=== PATIENT | female | born 2000 | race Caucasian/White ===

== ENCOUNTER 2023-12-22 12:57 | Inpatient (IN) | payer OTHER ==
[~2023-12-22] VITALS: Ht 157.5 cm; Wt 78.9 kg
[2024-01-05] VITALS (10 sets, daily range): BP systolic 109–137; BP diastolic 56–79
[2024-01-05] MEDS ORDERED: RINGERS SOLUTION,LACTATED 1,000 ML IV SCH (06:15)
[2024-01-05 06:44] LABS: HEMATOCRIT 34.3 % (36.0-45.00); HEMOGLOBIN 11.8 g/dL (12.0-15.00); MEAN CELL VOLUME 90.1 fL (80.00-100.00); MEAN CORPUSCULAR HEMOGLOBIN 31.1 pg (27.00-32.0); MEAN CORPUSCULAR HGB CONC 34.5 g/dl (32.0-36.0); PLATELET COUNT 230 K/uL (150-450); RED BLOOD COUNT 3.81 M/uL (4.00-6.00); RED CELL DISTRIBUTION WIDTH 13.4 % (11.5-14.5)
[2024-01-05 07:05] LABS: INR < 0.93; PARTIAL THROMBOPLASTIN TIME 25.5 SECONDS (22.0-34.0); PROTHROMBIN TIME 9.9 SECONDS (9.0-11.5)
[2024-01-05 07:35] LABS: ALBUMIN 2.9 gm/dL (3.4-5.0); BILIRUBIN TOTAL 0.27 mg/dL (0.3-1.2); CALCIUM 9.2 mg/dL (8.5-10.1); CREATININE SERUM 0.58 mg/dL (0.55-1.02); GFR 131.23; GLOBULINA 4.2 G/DL (2.4-3.5); POTASSIUM 4.18 mEq/L (3.5-5.1); TOTAL PROTEIN 7.1 gm/dL (6.4-8.2)
[2024-01-05] MEDS ORDERED: OXYTOCIN 500 ML IV ONE (07:45)
[2024-01-05] MEDS ORDERED: MEPERIDINE HCL/PF 25 MG/ML VIAL IV ONE (11:30)
[2024-01-05] MEDS ORDERED: PROMETHAZINE HCL 25 MG/ML AMPUL IV ONE (11:30)
[2024-01-05] MEDS ORDERED: IBUprofen 400 MG TABLET PO PRN (17:15)
[2024-01-05] MEDS ORDERED: CHLORHEXIDINE GLUCONATE 120 ML BOTTLE TOP ONE (17:15)
[2024-01-05] MEDS ORDERED: OXYTOCIN 1,000 ML IV ONE (17:15)
[2024-01-05] MEDS ORDERED: ERYTHROMYCIN BASE OPHT 1GM EACH TUBE OP ONE (17:45)
[2024-01-06] VITALS: BP 101/66
[2024-01-06 08:40] LABS: HEMATOCRIT 29.5 % (36.0-45.00); HEMOGLOBIN 10.3 g/dL (12.0-15.00); MEAN CELL VOLUME 88.8 fL (80.00-100.00); MEAN CORPUSCULAR HEMOGLOBIN 31.1 pg (27.00-32.0); PLATELET COUNT 178 K/uL (150-450); RED BLOOD COUNT 3.32 M/uL (4.00-6.00); RED CELL DISTRIBUTION WIDTH 13.9 % (11.5-14.5)
[2024-01-06 08:42] VITALS: BP 119/67
[2024-01-06] MEDS ORDERED: PNV,CALCIUM 72/IRON/FOLIC ACID 1 TAB TABLET PO SCH (09:00)
[2024-01-06 17:08] VITALS: BP 128/82
[2024-01-07 01:00] VITALS: BP 110/72
[2024-01-07 16:38] VITALS: BP 111/76
== END 2024-01-07 18:15 | disposition home or self-care (01) | DRG 807 ==
LOC: SURH → LDR 01-05 04:52 → OB/GYN 01-05 17:42
PROVIDERS: Obstetrics & Gynecology Gynecology; ADMIT Obstetrics & Gynecology Maternal & Fetal Medicine; ATTEND Obstetrics & Gynecology Maternal & Fetal Medicine
PROC: 10E0XZZ Delivery of Products of Conception, External Approach (ICD-10-PCS; principal; 2024-01-05)
PROC: 0UQG7ZZ Repair Vagina, Via Natural or Artificial Opening (ICD-10-PCS; 2024-01-05)
PROC: 4A1HXCZ Monitoring of Products of Conception, Cardiac Rate, External Approach (ICD-10-PCS; 2024-01-05)
DX: O71.4 Obstetric high vaginal laceration alone (principal); Z37.0 Single live birth; Z3A.40 40 weeks gestation of pregnancy; Z20.822 Contact with and (suspected) exposure to COVID-19

== ENCOUNTER 2023-12-25 16:58 | Outpatient (CLI) | payer OTHER ==
[2023-12-25 17:08] VITALS: BP 122/68
== END 2023-12-25 17:47 | disposition home or self-care (01) ==
LOC: NST 16:58
PROVIDERS: ATTEND Obstetrics & Gynecology Maternal & Fetal Medicine
DX: Z34.83 Encounter for supervision of other normal pregnancy, third trimester (principal)

== ENCOUNTER 2023-12-29 13:05 | Outpatient (CLI) | payer OTHER | END 2023-12-29 13:47 | disposition home or self-care (01) | LOC: NST 13:05 | PROVIDERS: ATTEND Obstetrics & Gynecology | DX: Z34.83 Encounter for supervision of other normal pregnancy, third trimester (principal) ==

== ENCOUNTER 2024-01-04 10:05 | Outpatient (CLI) | payer OTHER | END 2024-01-04 12:26 | disposition home or self-care (01) | LOC: NST 10:05 | PROVIDERS: ATTEND Obstetrics & Gynecology Maternal & Fetal Medicine | DX: Z34.83 Encounter for supervision of other normal pregnancy, third trimester (principal) ==